=== PATIENT | male | born 1960 | race Caucasian/White ===

== ENCOUNTER 2018-05-19 21:15 | Emergency (ER) | payer OTHER ==
[~2018-05-19] VITALS: Ht 195.6 cm; Wt 111.1 kg
[2018-05-20] MEDS ORDERED: CIPRO500 MG PO (01:22)
[2018-05-20] MEDS ORDERED: SKELAXIN800 MG PO (01:22)
[2018-05-20] MEDS ORDERED: KETO10TA2 PO (01:22)
== END 2018-05-20 01:20 | disposition left against medical advice (07) ==
LOC: ER 21:15
DX: N39.0 Urinary tract infection, site not specified (principal); M54.5 Low back pain

== ENCOUNTER 2018-05-21 22:16 | Emergency (ER) | payer OTHER ==
[~2018-05-21] VITALS: Ht 195.6 cm; Wt 111.1 kg
[~2018-05-21 22:16] MED LIST: CIPRO500 MG PO; KETO10TA2 PO; SKELAXIN800 MG PO
[2018-05-22] MEDS ORDERED: TAMS0.4C PO (03:48)
== END 2018-05-22 03:44 | disposition home or self-care (01) ==
LOC: ER 22:16
DX: N20.2 Calculus of kidney with calculus of ureter (principal); R10.31 Right lower quadrant pain; R10.11 Right upper quadrant pain